=== PATIENT | female | born 1985 ===

== ENCOUNTER 2017-11-08 18:09 | Emergency (ER) | payer SELFPAY ==
[2017-11-08 18:18] VITALS: BP 149/75; PULSE 79; RESP 18; TEMP 97.4; O2SAT 98
--- NOTE | 2017-11-08 19:42 | ED PDOC ---
HPI: Skin/Bite Injury Time Seen by Provider: 11/08/17 18:21 Chief Complaint (Nursing): Bite Past Medical History Vital Signs: Last Vital Signs Temp 97.4 F L 11/08/17 18:13 Pulse 79 11/08/17 18:13 Resp 18 11/08/17 18:13 BP 149/75 11/08/17 18:13 Pulse Ox 98 11/08/17 18:13 - Home Medications Home Medications: Ambulatory Orders Medication Instructions Recorded Nitrofurantoin Macrocrystals 100 mg PO BID #14 cap 06/23/16 [Macrobid] Amoxicillin/Clavulanate [Augmentin 1 tab PO BID #20 tab 11/08/17 875 MG-125 MG] - Allergies Allergies/Adverse Reactions: Allergies Allergy/AdvReac Type Severity Reaction Status Date / Time No Known Allergies Allergy Verified 06/23/16 01:44 - ECG O2 Sat by Pulse Oximetry: 98 Disposition - Clinical Impression Clinical Impression: Dog bite, Puncture wound, Tetanus toxoid vaccination administered at current visit Counseled Patient/Family Regarding: Diagnosis, Need For Followup, Rx Given - Disposition Disposition: Routine/Home Disposition Time: 19:40 Condition: GOOD Prescriptions: Amoxicillin/Clavulanate [Augmentin 875 MG-125 MG] 1 tab PO BID #20 tab Instructions: Animal Bite (ED) Forms: [employer] (Anguillan)
== END 2017-11-08 19:52 | disposition home or self-care (01) ==
LOC: H.ER 18:09
DX: S61.233A Puncture wound without foreign body of left middle finger without damage to nail, initial encounter (principal); W54.0XXA Bitten by dog, initial encounter; Y92.89 Other specified places as the place of occurrence of the external cause

== ENCOUNTER 2018-09-25 17:23 | Emergency (ER) | payer MEDICAID, OTHER ==
[2018-09-25 17:39] VITALS: BP 138/84; PULSE 80; RESP 18; TEMP 98.1; O2SAT 100
[2018-09-25] MEDS ORDERED: Amoxicillin-Clav 875-125 mg Tab PO STA (18:37)
[2018-09-25] MEDS ORDERED: Amoxicillin-Clav 875-125 mg Tab PO ONE (18:41)
--- NOTE | 2018-09-25 18:42 | ED PDOC ---
HPI: CCC, URI, Sore Throat Time Seen by Provider: 09/25/18 17:37 Chief Complaint (Nursing): ENT Problem Chief Complaint (Provider): Facial Swelling, Left Jaw/Ear Pain History Per: Patient History/Exam Limitations: no limitations Have you had recent travel within the past 21 days to any of the following countries: [place], [place], [place] or [place]?: No Onset/Duration Of Symptoms: Hrs (since last night) Current Symptoms Are (Timing): Still Present Sick Contacts (Context): None Additional Complaint(s): Patient is a 33 year old female who presents to the ED with reports of left sided facial swelling that started last night after eating dinner. Patient reports the pain radiates to the jaw and ear. Patient did not take any medications prior to arrival because she is 3 months and unsure of what she can take during . Patient has no other complaints. Denies: fever, rash, new exposures, SOB/cough, throat pain, pain on swallowing, recent dental work, toothache, N/V. PMD: [place] LMP: ~12 weeks ago Past Medical History Reviewed: Historical Data, Nursing Documentation, Vital Signs Vital Signs: Last Vital Signs Temp 98.1 F 09/25/18 17:36 Pulse 80 09/25/18 17:36 Resp 18 09/25/18 17:36 BP 138/84 09/25/18 17:36 Pulse Ox 100 09/25/18 17:36 - Medical History PMH: No Chronic Diseases - Surgical History Surgical History: (x1) - Family History Family History: States: Unknown Family Hx - Home Medications Home Medications: Ambulatory Orders Medication Instructions Recorded Nitrofurantoin Macrocrystals 100 mg PO BID #14 cap 06/23/16 [Macrobid] Amoxicillin/Clavulanate [Augmentin 1 tab PO BID #20 tab 11/08/17 875 MG-125 MG] Acetaminophen [Acetaminophen 8 650 mg PO Q8 PRN #21 tablet.er 09/25/18 Hour] Amoxicillin/Clavulanate [Augmentin 1 tab PO BID #14 tab 09/25/18 875 MG-125 MG] - Allergies Allergies/Adverse Reactions: Allergies Allergy/AdvReac Type Severity Reaction Status Date / Time No Known Allergies Allergy Verified 09/25/18 17:36 Review of Systems ROS Statement: Except As Marked, All Systems Reviewed And Found Negative ENT: Positive for: Ear Pain (referred), Other (Facial swelling) Physical Exam - Reviewed Nursing Documentation Reviewed: Yes Vital Signs Reviewed: Yes - Physical Exam Appears: Positive for: Well, Non-toxic, No Acute Distress Head Exam: Positive for: ATRAUMATIC, NORMOCEPHALIC Skin: Positive for: Normal Color, Warm, Dry Eye Exam: Positive for: EOMI, PERRL. Negative for: Nystagmus, Periorbital tenderness ENT: Positive for: Pharynx Is (clear, uvula midline), TM Is/Are (nonbulging and nonerythematous), Other ((+) edema to parotid gland (+) mild tenderness (-) erythema (-) overlying skin changes. Dentition nontender, (-) gingival erythema or edema). Negative for: Sinus Pain/Drainage, Nasal Congestion, Pharyngeal Erythema, Tonsillar Exudate, Tonsillar Swelling Neck: Positive for: Painless ROM, Supple Cardiovascular/Chest: Positive for: Regular Rate, Rhythm Respiratory: Positive for: Normal Breath Sounds. Negative for: Decreased Breath Sounds, Stridor, Respiratory Distress Gastrointestinal/Abdominal: Positive for: Soft. Negative for: Tenderness, Distended, Guarding Extremity: Positive for: Normal ROM. Negative for: Deformity Neurologic/Psych: Positive for: Alert, Oriented (x3), Gait (steady in ED). Negative for: Aphasia, Facial Droop - ECG O2 Sat by Pulse Oximetry: 100 (RA) Pulse Ox Interpretation: Normal Medical Decision Making Medical Decision Makin Initial Impression: Facial Swelling, Parotitis Plan: -Augmentin PO -Tylenol PO Based on history, exam and diagnostic results, plan will be for outpatient follow up with PMD/ENT. Use of lemon lozenges encouraged. Patient instructed to follow-up with pmd / referral provided / the clinic in 1- 2 days without fail. Advised to take medication as prescribed. Return to the emergency room at any time for any new or worsening symptoms. Patient states she fully agrees with and understands discharge instructions. States that she agrees with the plan and disposition. Verbalized and repeated discharge instructions and plan. I have given the patient opportunity to ask any additional questions. Disposition - Clinical Impression Clinical Impression: Parotitis, Swelling of left side of face - Patient ED Disposition Is Patient to be Admitted: No Counseled Patient/Family Regarding: Studies Performed, Diagnosis, Need For Followup, Rx Given - Disposition Referrals: Titi Guerin MD [Family Provider] - Zurdo Everett MD [Staff Provider] - Disposition: Routine/Home Disposition Time: 18:50 Condition: STABLE Additional Instructions: The emergency medical care you received today was directed at your acute symptoms. If you were prescribed any medication, please fill it and take as dir ected. It may take several days for your symptoms to resolve. Return to the Emergency Department if your symptoms worsen, do not improve, or if you have any other problems. Please contact your doctor in 2 days for re-evaluation and follow up / or call one of the physicians/clinics you have been referred to that are listed on the Patient Visit Information form that is included in your discharge packet. Bring any paperwork you were given at discharge with you along with any medications you are taking to your follow up visit. Our treatment cannot replace ongoing medical care by a primary care provider (PCP) outside of the emergency department. Prescriptions: Acetaminophen [Acetaminophen 8 Hour] 650 mg PO Q8 PRN #21 tablet.er PRN Reason: Pain, Moderate (4-7) Amoxicillin/Clavulanate [Augmentin 875 MG-125 MG] 1 tab PO BID #14 tab Instructions: Parotitis, Salivary Gland Infection (DC) Forms: [facility] [employer] (Hungarian) Print Language: GERMAN - POA Present On Arrival: None
== END 2018-09-25 18:55 | disposition home or self-care (01) ==
LOC: H.ER 17:23
DX: K11.20 Sialoadenitis, unspecified (principal)

== ENCOUNTER 2018-10-05 10:47 | Emergency (ER) | payer MEDICAID ==
[2018-10-05 10:54] VITALS: O2SAT 100
--- NOTE | 2018-10-05 12:32 | ED PDOC ---
HPI: Female Pain Time Seen by Provider: 10/05/18 11:27 Chief Complaint (Nursing): Female Genitourinary History Per: Patient Additional Complaint(s): Pt. states since Friday she's had brown vaginal discharge. Reports noticing the discharge after wiping. States she is currently and under the care of Dr. Gu. Had 1st month visit but no US yet. Today she was advised by Dr. Gu to come to ED for an US. Denies vaginal bleeding, abd pain, pelvic sourav n, back pain, dysuria, hematuria, N/V, hx of ectopic pregnancies. Past Medical History Reviewed: Historical Data, Nursing Documentation, Vital Signs Vital Signs: Last Vital Signs Temp 98.3 F 10/05/18 10:53 Pulse 94 H 10/05/18 10:53 Resp 18 10/05/18 10:53 BP 132/84 10/05/18 10:53 Pulse Ox 100 10/05/18 10:53 - Surgical History Surgical History: (x1) - Family History Family History: States: No Known Family Hx - Home Medications Home Medications: Ambulatory Orders Medication Instructions Recorded Nitrofurantoin Macrocrystals 100 mg PO BID #14 cap 06/23/16 [Macrobid] Amoxicillin/Clavulanate [Augmentin 1 tab PO BID #20 tab 11/08/17 875 MG-125 MG] Acetaminophen [Acetaminophen 8 650 mg PO Q8 PRN #21 tablet.er 09/25/18 Hour] Amoxicillin/Clavulanate [Augmentin 1 tab PO BID #14 tab 09/25/18 875 MG-125 MG] - Allergies Allergies/Adverse Reactions: Allergies Allergy/AdvReac Type Severity Reaction Status Date / Time No Known Allergies Allergy Verified 09/25/18 17:36 Review of Systems ROS Statement: Except As Marked, All Systems Reviewed And Found Negative Genitourinary Female: Positive for: Vaginal Discharge Physical Exam - Physical Exam Appears: Positive for: Well, Non-toxic, No Acute Distress Skin: Positive for: Normal Color, Warm. Negative for: Rash Eye Exam: Positive for: Normal appearance Gastrointestinal/Abdominal: Positive for: Normal Exam, Soft. Negative for: Tenderness Back: Positive for: Normal Inspection. Negative for: L CVA Tenderness, R CVA Tenderness Neurologic/Psych: Positive for: Alert, Oriented (x3) - Laboratory Results Result Diagrams: 12/03/18 12:25 10/05/18 12:25 - ECG O2 Sat by Pulse Oximetry: 100 - Progress ED Course And Treament: Labs ordered. Case d/w Dr. Gu who requests US and BHCG level to be done. Results d/w Dr. Gu who states pt. is to f/u in his office tomorrow but prefers to give US results. Also states no Abx to be given at this time and he will f/u on cultures himself. Upon being discharge pt. requested that she be given US results. Pt. given US results and still advised to f/u with Dr. Gu tomorrow. Agrees with plan and care. US results faxed to Dr. Gu at his request. Disposition - Clinical Impression Clinical Impression: Miscarriage - Patient ED Disposition Is Patient to be Admitted: No - Disposition Referrals: Giuliano Gu MD [Staff Provider] - Disposition: Routine/Home Disposition Time: 14:32 Condition: STABLE Additional Instructions: FOLLOW UP WITH DR. GU TOMORROW WITHOUT FAIL RETURN TO ED IMMEDIATELY FOR ANY CONCERNS OR QUESTIONS DELFIN LARSEN, thank you for letting us take care of you today. Your provider was Medardo Garcia MD and you were treated for 12 WEEKS,DISCHARGING. The emergency medical care you received today was directed at your acute symptoms. If you were prescribed any medication, please fill it and take as directed. It may take several days for your symptoms to resolve. Return to the Emergency Depa rtment if your symptoms worsen, do not improve, or if you have any other problems. Please contact your doctor or call one of the physicians/clinics you have been referred to that are listed on the Patient Visit Information form that is included in your discharge packet. Bring any paperwork you were given at discharge with you along with any medications you are taking to your follow up visit. Our treatment cannot replace ongoing medical care by a primary care provider outside of the emergency department. Thank you for allowing the [facility] team to be part of your care today. If you had an X-Ray or CT scan: A Radiologist will review the ED reading if any change in treatment is needed we will contact you. If you had a blood, urine, or wound culture: It will take several days for the results, if any change in treatment is needed we will contact you. If you had an STI test: It will take 48 hours for the results. Please call after 1 week if you have not heard back. Instructions: Miscarriage (DC), Dealing With Miscarriage Forms: [facility] (Romanian) Print Language: LIBERIAN
[2018-10-05 12:46] LABS: BASO # 0.1 K/uL (0.0-0.2); BASO % 0.5 % (0.0-2.0); EOS # 0.1 K/uL (0.0-0.7); EOS % 0.5 % (0.0-4.0); HEMOGLOBIN 12.8 g/dL (12.0-16.0); LYMPH # 1.9 K/uL (1.0-4.3); LYMPH % 16.4 % (20.0-40.0); MEAN CELL VOLUME 92.2 fl (81.0-99.0); MEAN CORPUSCULAR HEMOGLOBIN 30.1 pg (27.0-31.0); MEAN CORPUSCULAR HGB CONC 32.6 g/dL (33.0-37.0); MEAN PLATELET VOLUME 6.6 fl (7.2-11.7); MONO # 0.6 K/uL (0.0-0.8); NEUT # 8.9 K/uL (1.8-7.0); NEUT % 77.6 % (50.0-75.0); NRBC % 0.2 % (0.0-0.0); RBC 4.27 Mil/uL (3.80-5.20); RED CELL DISTRIBUTION WIDTH 13.5 % (11.5-14.5); WHITE BLOOD COUNT 11.5 K/uL (4.8-10.8)
[2018-10-05 12:51] LABS: SQUAMOUS EPITHIAL 11 /hpf (0-5); URINE BACTERIA RARE (<OCC); URINE BILIRUBIN NEGATIVE (NEGATIVE); URINE BLOOD MODERATE (NEGATIVE); URINE CLARITY CLOUDY (Clear); URINE COLOR YELLOW (YELLOW); URINE GLUCOSE (UA) NEG (Normal); URINE LEUKOCYTE ESTERASE MOD Leu/uL (Negative); URINE PROTEIN 30 mg/dL (NEGATIVE); URINE UROBILINOGEN 0.2-1.0 mg/dL (0.2-1.0)
[2018-10-05 12:51] LABS: ALB/GLOB RATIO 1.2 (1.0-2.1); ALBUMIN 4.4 g/dL (3.5-5.0); ALT/SGPT 25 U/L (9-52); AST/SGOT 29 U/L (14-36); BLOOD UREA NITROGEN 12 mg/dl (7-17); CALCIUM 9.5 mg/dL (8.4-10.2); GFR NON-AFRICAN AMERICAN > 60
--- NOTE | 2018-10-05 13:50 | US ---
Date of service: 10/05/2018 PROCEDURE: ultrasound HISTORY: brown vaginal discharge Beta HCG results: Eleven thousand nine hundred ten. Units. COMPARISON: None TECHNIQUE: Standard protocol for this study/examination. FINDINGS: LMP: 07/18/2018 Prior examinations from the current : None. TECHNIQUE: Real-time 2D imaging, duplex and color Doppler. FINDINGS: Cardiac activity: Absent Measurements: [place] rump length: 1.54 cm Gestational age based on CRL 8 weeks Gestational age 9 weeks 1 day based on gestational sac measurement 3.91 cm Gestational age derived from LMP: 11 weeks 2 days STEFANY based on LMP: 04/24/2019 STEFANY based on biometry: 05/13/2019 Yolk sac not identified Cervix: Fluid in the endocervical canal. Closed cervix measuring 4.02 cm Subchorionic hemorrhage: None UTERUS: 4.3 x 6.8 x 9.3 cm. Anterior fibroid measures 1.6 x 1.5 cm ADNEXA: Right: 1.7 x 2.2 x 2.9 cm. Solid/complex mass 1.7 x 1.8 cm. Normal Doppler arterial waveform documented. Left: Not visible Fluid in the cul-de-sac: None IMPRESSION: Absence of cardiac activity suggest intrauterine demise. Complex primarily solid mass right adnexa.
[2018-10-05 14:46] VITALS: BP 130/74; PULSE 88; RESP 16; TEMP 98.4
== END 2018-10-05 14:46 | disposition home or self-care (01) ==
LOC: H.ER 10:47
DX: O03.9 Complete or unspecified spontaneous abortion without complication (principal)

== ENCOUNTER 2019-03-14 18:15 | Inpatient (IN) | payer MEDICAID ==
[2019-03-14 18:20] VITALS: BMI 29.0
[2019-03-14] MEDS ORDERED: Sodium Chloride 0.9% 1,000 ML IV STA (18:35)
[2019-03-14] MEDS ORDERED: Iohexol 240 (50 ml) PO ONE (18:37)
--- NOTE | 2019-03-14 18:46 | ED PDOC ---
HPI: Abdomen Time Seen by Provider: 03/14/19 18:27 Chief Complaint (Nursing): Back Pain Chief Complaint (Provider): abdominal pain History Per: Patient History/Exam Limitations: no limitations Onset/Duration Of Symptoms: Days Outside of [place] travel?: No Current Symptoms Are (Timing): Still Present Pain Scale Rating Of: 6 Location Of Pain/Discomfort: Diffuse Quality Of Discomfort: "Pain" Associated Symptoms: denies: Fever, Chills, Nausea, Vomiting, Diarrhea, Loss Of Appetite, Back Pain, Chest Pain, Constipation, Urinary Symptoms Exacerbating Factors: None Alleviating Factors: None Additional History Per: Patient Additional Complaint(s): 33 year old female with no significant medical history presents to the Emergency room c/o back pain started yesterday and diffuse abdominal pain started this morning. Patient states back pain started yesterday while "shopping" non- radiating, denies aggravating symptoms. Today she woke up with diffuse abdominal pain. Denies nausea, vomiting, diarrhea or fever. Past Medical History Reviewed: Historical Data, Nursing Documentation, Vital Signs Vital Signs: Last Vital Signs Temp 97.9 F 03/14/19 18:18 Pulse 80 03/14/19 18:18 Resp 18 03/14/19 18:18 BP 128/82 03/14/19 18:18 Pulse Ox 99 03/14/19 18:18 Primary Care Provider: FAMILY PROVIDER,NO - Medical History PMH: No Chronic Diseases - Surgical History Surgical History: No Surg Hx, (x1) - Family History Family History: States: Unknown Family Hx - Social History Alcohol: None Drugs: Denies - Home Medications Home Medications: Ambulatory Orders Medication Instructions Recorded Nitrofurantoin Macrocrystals 100 mg PO BID #14 cap 06/23/16 [Macrobid] Amoxicillin/Clavulanate [Augmentin 1 tab PO BID #20 tab 11/08/17 875 MG-125 MG] Acetaminophen [Acetaminophen 8 650 mg PO Q8 PRN #21 tablet.er 09/25/18 Hour] Amoxicillin/Clavulanate [Augmentin 1 tab PO BID #14 tab 09/25/18 875 MG-125 MG] - Allergies Allergies/Adverse Reactions: Allergies Allergy/AdvReac Type Severity Reaction Status Date / Time No Known Allergies Allergy Verified 03/14/19 18:31 Review of Systems ROS Statement: Except As Marked, All Systems Reviewed And Found Negative Constitutional: Negative for: Fever, Chills, Sweats, Weakness, Malaise, Weight loss Respiratory: Negative for: Cough, Shortness of Breath, SOB with Exertion, Wheezing Gastrointestinal: Positive for: Abdominal Pain. Negative for: Nausea, Vomiting, Diarrhea, Constipation Genitourinary Female: Negative for: Dysuria Skin: Negative for: Rash Physical Exam - Reviewed Nursing Documentation Reviewed: Yes Vital Signs Reviewed: Yes - Physical Exam Appears: Positive for: Well, Non-toxic, No Acute Distress Head Exam: Positive for: ATRAUMATIC, NORMAL INSPECTION, NORMOCEPHALIC Skin: Positive for: Normal Color, Warm, DRY Eye Exam: Positive for: Normal appearance, PERRL ENT: Positive for: Normal ENT Inspection Neck: Positive for: Normal, Painless ROM, Supple Cardiovascular/Chest: Positive for: Regular Rate, Rhythm Respiratory: Positive for: CNT, Normal Breath Sounds Pulses-Radial (L): 2+ Pulses-Radial (R): 2+ Gastrointestinal/Abdominal: Positive for: Normal Exam, Bowel Sounds, Soft, Tenderness (diffuse tenderness throughout ). Negative for: Distended Back: Positive for: Normal Inspection. Negative for: L CVA Tenderness, R CVA Tenderness, Vertebral Tenderness Extremity: Positive for: Normal ROM Neurological/Psych: Positive for: Awake, Alert, Normal Tone, Oriented - Laboratory Results Result Diagrams: 03/14/19 19:18 03/14/19 19:18 Urine POC: Negative - ECG O2 Sat by Pulse Oximetry: 99 Medical Decision Making Medical Decision Making: --cbc --cmp --lipase --ua --upreg --toradol --0.9NS 19:39 UA negative, pending rest of labs and ct scan 20:00 Patient endorsed to Lauro Calzada PA-c. Pending labs and CT scan abd/pelvis, re- eval. Disposition - Clinical Impression Clinical Impression: Abdominal pain - Patient ED Disposition Is Patient to be Admitted: Transfer of Care Counseled Patient/Family Regarding: Diagnosis - Disposition Disposition: Transfer of Care Disposition Time: 20:00 Condition: GOOD Forms: [email or web address] (Hong Konger) Patient Signed Over To: Lauro Calzada Handoff Comments: follow-up on blood work and ct scan abd - POA Present On Arrival: None
[2019-03-14 19:19] LABS: SQUAMOUS EPITHIAL 1 /hpf (0-5); URINE BILIRUBIN NEGATIVE (NEGATIVE); URINE BLOOD SMALL (NEGATIVE); URINE CLARITY SLIGHTY-CLOUDY (Clear); URINE COLOR YELLOW (YELLOW); URINE GLUCOSE (UA) NEG (NEGATIVE); URINE LEUKOCYTE ESTERASE NEG Leu/uL (Negative); URINE PROTEIN NEGATIVE (NEGATIVE); URINE UROBILINOGEN 0.2-1.0 mg/dL (0.2-1.0)
[2019-03-14] MEDS ORDERED: Iohexol 240 (50 ml) ONE (19:23)
[2019-03-14 20:10] LABS: BASO % 0.4 % (0.0-2.0); EOS # 0.1 K/uL (0.0-0.7); EOS % 1.6 % (0.0-4.0); HEMOGLOBIN 12.9 g/dL (12.0-16.0); LYMPH # 2.3 K/uL (1.0-4.3); LYMPH % 25.8 % (20.0-40.0); MEAN CELL VOLUME 87.9 fl (81.0-99.0); MEAN CORPUSCULAR HEMOGLOBIN 29.1 pg (27.0-31.0); MEAN CORPUSCULAR HGB CONC 33.1 g/dL (33.0-37.0); MEAN PLATELET VOLUME 6.8 fl (7.2-11.7); MONO # 0.7 K/uL (0.0-0.8); MONO % 8.1 % (0.0-10.0); NEUT # 5.8 K/uL (1.8-7.0); NEUT % 64.1 % (50.0-75.0); RBC 4.42 Mil/uL (3.80-5.20); RED CELL DISTRIBUTION WIDTH 14.1 % (11.5-14.5)
--- NOTE | 2019-03-14 20:12 | ED PDOC ---
- Laboratory Results Result Diagrams: 03/14/19 19:18 03/14/19 19:18 Lab Results: Urine Color Yellow (YELLOW) 03/14/19 18:48 Urine Clarity Slighty-cloudy (Clear) 03/14/19 18:48 Urine pH 5.0 (5.0-8.0) 03/14/19 18:48 Ur Specific [place] 1.025 (1.003-1.030) 03/14/19 18:48 Urine Protein Negative mg/dL (NEGATIVE) 03/14/19 18:48 Urine Glucose (UA) Neg mg/dL (NEGATIVE) 03/14/19 18:48 Urine Ketones Negative mg/dL (NEGATIVE) 03/14/19 18:48 Urine Blood Small (NEGATIVE) 03/14/19 18:48 Urine Nitrate Negative (NEGATIVE) 03/14/19 18:48 Urine Bilirubin Negative (NEGATIVE) 03/14/19 18:48 Urine Urobilinogen 0.2-1.0 mg/dL (0.2-1.0) 03/14/19 18:48 Ur Leukocyte Esterase Neg Jeb/uL (Negative) 03/14/19 18:48 Urine RBC (Auto) 3 /hpf (0-3) 03/14/19 18:48 Ur Squamous Epith Cells 1 /hpf (0-5) 03/14/19 18:48 Urine POC: Negative - ECG O2 Sat by Pulse Oximetry: 99 - Progress ED Course And Treament: CT ABD/PELVIS: FINDINGS CONSISTENT WITH ACUTE APPENDICITIS D/W DR. COLLAZO PMD. REFERS TO HOSPITALIST D/W SURG RESIDENT. D/W DR. HURT HOSPITALIST JRYair 3.375GM IV X 1 DOSE Disposition - Clinical Impression Clinical Impression: Abdominal pain - POA Present On Arrival: None - Disposition Disposition: Admitted as In-Patient Disposition Time: 22:27 Condition: GOOD
[2019-03-14 20:19] LABS: ALB/GLOB RATIO 1.4 (1.0-2.1); ALBUMIN 4.4 g/dL (3.5-5.0); ALT/SGPT 27 U/L (9-52); AST/SGOT 26 U/L (14-36); BLOOD UREA NITROGEN 12 mg/dl (7-17); CALCIUM 8.8 mg/dL (8.4-10.2); GFR NON-AFRICAN AMERICAN > 60; LIPASE 48 U/L (23-300)
[2019-03-14] MEDS ORDERED: Iohexol 300 100 ML IJ ONE (21:12)
[2019-03-14] MEDS ORDERED: Piperacillin/Tazobact 3.375 GM in Sodium Chloride 0.9% 100 ML IVPB STA (22:16)
[2019-03-14] MEDS ORDERED: Piperacillin/Tazobact 3.375 gm Inj IVPB ONE (22:45)
--- NOTE | 2019-03-14 22:46 | CP.PCM.HP ---
<Maine Locke - Last Filed: 03/14/19 23:30> History of Present Illness - History of Present Illness History of Present Illness: 33 yo female with no pertinent medical history presented to the ED because of low bilateral back pain that radiates to the upper and lower abdomen. Pain is 9/ 10, constant, no alleviating or aggravating factors. Reports she did not use any medication for the pain at home. Denies pain being associated with food intake. Last meal was 1pm. Denies Nausea, vomiting, fevers, chills, diarrhea, sick contacts, chest pain, shortness of breath, loss of appetite, dysuria, frequency and urgency. LMP: 02/2019 (patient does not remember the date). ROS: negative except for stated above in HPI Family history: Maternal grandfather from a stroke in his 60's. Mother with HTN Surgical history: 1 C/S Medical history: Denies Allergies: Denies Social: denies alcohol, smoking history and illicit drug use. Present on Admission - Present on Admission Any Indicators Present on Admission: No Review of Systems - Cardiovascular Cardiovascular: As Per HPI - Respiratory Respiratory: As Per HPI - Gastrointestinal Gastrointestinal: As Per HPI - Genitourinary Genitourinary: As Per HPI Past Patient History - Past Medical History & Family History Past Medical History?: No - Past Social History Alcohol: None Drugs: Denies - PSYCHIATRIC Hx Substance Use: No - SURGICAL HISTORY Hx Surgeries: Yes Hx Section: Yes - ANESTHESIA Hx Anesthesia: Yes Hx Anesthesia Reactions: No Meds Allergies/Adverse Reactions: Allergies Allergy/AdvReac Type Severity Reaction Status Date / Time No Known Allergies Allergy Verified 03/14/19 18:31 Physical Exam - Constitutional Appears: Non-toxic, No Acute Distress - Head Exam Head Exam: NORMAL INSPECTION - Eye Exam Eye Exam: Normal appearance Pupil Exam: NORMAL ACCOMODATION - ENT Exam ENT Exam: Mucous Membranes Moist, Normal Exam - Respiratory Exam Respiratory Exam: Clear to Auscultation Bilateral, NORMAL BREATHING PATTERN. absent: Accessory Muscle Use, Chest Wall Tenderness, Decreased Breath Sounds, Prolonged Expiratory Phase, Rales, Rhonchi, Wheezes, Respiratory Distress, Stridor - Cardiovascular Exam Cardiovascular Exam: REGULAR RHYTHM, +S1, +S2 - GI/Abdominal Exam GI & Abdominal Exam: Normal Bowel Sounds, Rebound (Rovsing's sign positive. RLQ Rebound and LLQ rebound), Soft, Tenderness (RLQ Tenderness). absent: Distended, Firm, Guarding - Extremities Exam Extremities exam: Positive for: normal capillary refill (<2 sec cap refill), normal inspection, pedal pulses present (+2 dorsalis pedis and tibialis pulses present bilaterally. ). Negative for: calf tenderness, pedal edema, tenderness - Back Exam Back exam: NORMAL INSPECTION. absent: CVA tenderness (L), CVA tenderness (R), tenderness, vertebral tenderness - Neurological Exam Neurological exam: Alert, Oriented x3 - Psychiatric Exam Psychiatric exam: Normal Affect, Normal Mood - Skin Skin Exam: Dry, Intact, Normal Color, Warm Results - Vital Signs Recent Vital Signs: Last Vital Signs Temp 98.1 F 03/14/19 20:00 Pulse 72 03/14/19 20:00 Resp 18 03/14/19 20:00 BP 116/76 03/14/19 20:00 Pulse Ox 99 03/14/19 22:27 - Labs Result Diagrams: 03/14/19 19:18 03/14/19 19:18 Labs: Laboratory Results - last 24 hr 03/14/19 03/14/19 03/14/19 18:48 19:18 19:18 WBC 9.0 RBC 4.42 Hgb 12.9 Hct 38.8 MCV 87.9 D MCH 29.1 MCHC 33.1 RDW 14.1 Plt Count 332 MPV 6.8 L Neut % (Auto) 64.1 Lymph % (Auto) 25.8 [place] % (Auto) 8.1 Eos % (Auto) 1.6 Baso % (Auto) 0.4 Neut # (Auto) 5.8 Lymph # (Auto) 2.3 [place] # (Auto) 0.7 Eos # (Auto) 0.1 Baso # (Auto) 0.0 Sodium 137 Potassium 3.9 Chloride 103 Carbon Dioxide 25 Anion Gap 13 BUN 12 Creatinine 0.5 L Est GFR ( Amer) > 60 Est GFR (Non-Af Amer) > 60 Random Glucose 85 Calcium 8.8 Total Bilirubin 0.3 AST 26 ALT 27 Alkaline Phosphatase 68 Total Protein 7.5 Albumin 4.4 Globulin 3.2 Albumin/Globulin Ratio 1.4 Lipase 48 Urine Color Yellow Urine Clarity Slighty-cloudy Urine pH 5.0 Ur Specific [place] 1.025 Urine Protein Negative Urine Glucose (UA) Neg Urine Ketones Negative Urine Blood Small Urine Nitrate Negative Urine Bilirubin Negative Urine Urobilinogen 0.2-1.0 Ur Leukocyte Esterase Neg Urine RBC (Auto) 3 Ur Squamous Epith Cells 1 Assessment & Plan (1) Acute appendicitis Status: Acute - Assessment and Plan (Free Text) Assessment: 33 yo female with no pertinent medical history presented to ED because of low back pain and upper abdominal pain, admitted for Acute appendicitis. Plan: 1. Acute Appendicitis - Admit to Med/Surg - Hemodynamically stable, afebrile, no leukocytosis - Upreg negative - Surgery consult appreciated- OR planned for tomorrow - CT scan: Acute appendicitis - Of note, patient had TVUS performed 10/2018 which found complex primarily solid mass on right adnexa- surgery made aware. - NPO - IVF @ maintenance - Zofran for nausea - Zosyn Q6H - Repeat Labs in the morning - Pain management- motrin and morphine - Tylenol for fevers 2. DVT prophylaxis - Early ambulation and SCD's 3. Full code <Chung Shah - Last Filed: 03/15/19 00:04> Results - Vital Signs Recent Vital Signs: Last Vital Signs Temp 98.1 F 03/14/19 20:00 Pulse 72 03/14/19 20:00 Resp 18 03/14/19 20:00 BP 116/76 03/14/19 20:00 Pulse Ox 99 03/14/19 22:27 - Labs Result Diagrams: 03/14/19 19:18 03/14/19 19:18 Labs: Laboratory Results - last 24 hr 03/14/19 03/14/19 03/14/19 18:48 19:18 19:18 WBC 9.0 RBC 4.42 Hgb 12.9 Hct 38.8 MCV 87.9 D MCH 29.1 MCHC 33.1 RDW 14.1 Plt Count 332 MPV 6.8 L Neut % (Auto) 64.1 Lymph % (Auto) 25.8 [place] % (Auto) 8.1 Eos % (Auto) 1.6 Baso % (Auto) 0.4 Neut # (Auto) 5.8 Lymph # (Auto) 2.3 [place] # (Auto) 0.7 Eos # (Auto) 0.1 Baso # (Auto) 0.0 Sodium 137 Potassium 3.9 Chloride 103 Carbon Dioxide 25 Anion Gap 13 BUN 12 Creatinine 0.5 L Est GFR ( Amer) > 60 Est GFR (Non-Af Amer) > 60 Random Glucose 85 Calcium 8.8 Total Bilirubin 0.3 AST 26 ALT 27 Alkaline Phosphatase 68 Total Protein 7.5 Albumin 4.4 Globulin 3.2 Albumin/Globulin Ratio 1.4 Lipase 48 Urine Color Yellow Urine Clarity Slighty-cloudy Urine pH 5.0 Ur Specific [place] 1.025 Urine Protein Negative Urine Glucose (UA) Neg Urine Ketones Negative Urine Blood Small Urine Nitrate Negative Urine Bilirubin Negative Urine Urobilinogen 0.2-1.0 Ur Leukocyte Esterase Neg Urine RBC (Auto) 3 Ur Squamous Epith Cells 1 Assessment & Plan - Assessment and Plan (Free Text) Plan: History as documented by resident was reviewed with patient and resident. I performed the lin elements of exam and agree with the above findings. Diagn ostics were reviewed and medical decision making and plan of care performed by me. 33 yo CF with no PMH p/w back and abdominal pain x1 day. CT showing acute appendicitis. Lab work unremarkable. On exam has tenderness most prominent over RLQ without rigidity or rebound. IVF, Zosyn. Pain management. Surgery consult. As far as risk assessment she is of average risk for the intermedate risk procedure (appendectomy). No need for any further pre-op work up. Can proceed with surgery if deemed indicated by surgery.
--- NOTE | 2019-03-14 23:19 | CP.PCM.CON ---
History of Present Illness - History of Present Illness History of Present Illness: Surgery: Dr. Zavaleta Reason for consult: appendicitis HPI: Patient is a 33F who presents complaining of low back pain for the past 2 days she states the pain migrated around to the front of her abdomen and localized to the RLQ. She reports the pain progressively got worse over the past 48 hrs which prompted visit. She denies n/v/f/c. She reports normal bowel function. She denies similar pain in the past. She denies vaginal discharge or urinary symptoms. She reports last menstrual cycle was last month and shorter than normal. PMH: PSH: C section Social: denies ETOH, tobacco, or drug use Fam: noncontributory Review of Systems - Review of Systems All systems: reviewed and no additional remarkable complaints except Review of Systems: unless stated in HPI - Constitutional Constitutional: absent: Anorexia, Chills, Fever - EENT Eyes: absent: Blurred Vision, Change in Vision Ears: absent: Disequilibrium, Dizziness Nose/Mouth/Throat: absent: Nasal Trauma, Change in Voice - Cardiovascular Cardiovascular: absent: Chest Pain, Dyspnea - Respiratory Respiratory: absent: Cough, Wheezing - Gastrointestinal Gastrointestinal: Abdominal Pain. absent: Bloating, Constipation, Cramping, Diarrhea, Vomiting - Genitourinary Genitourinary: absent: Change in Urinary Stream, Hematuria, Pyuria - Reproductive: Female Reproductive:Female: absent: Vaginal Odor, Vaginal Pruritis - Menstruation Menstruation: Light Menses. absent: Heavy Menses - Integumentary Integumentary: absent: Acne, Lesions - Neurological Neurological: absent: Dizziness, Numbness - Psychiatric Psychiatric: absent: Anxiety, Depression - Endocrine Endocrine: absent: Polydipsia, Polyphagia - Hematologic/Lymphatic Hematologic: absent: Easy Bleeding, Easy Bruising Past Patient History - Past Medical History & Family History Past Medical History?: No - Past Social History Alcohol: None Drugs: Denies - PSYCHIATRIC Hx Substance Use: No - SURGICAL HISTORY Hx Surgeries: Yes Hx Section: Yes - ANESTHESIA Hx Anesthesia: Yes Hx Anesthesia Reactions: No Meds Allergies/Adverse Reactions: Allergies Allergy/AdvReac Type Severity Reaction Status Date / Time No Known Allergies Allergy Verified 03/14/19 18:31 - Medications Medications: Current Medications Piperacillin Sod/Tazobactam (Sod 3.375 gm/ Sodium Chloride) 100 mls @ 100 mls/hr IVPB STAT STA; Protocol Stop: 03/14/19 23:15 Last Admin: 03/14/19 22:57 Dose: 100 mls/hr Lactated Ringer's (Lactated Ringer's) 1,000 mls @ 125 mls/hr IV .Q8H YUN Ibuprofen (Motrin Tab) 400 mg PO Q6 PRN PRN Reason: Pain, Mild (1-3) Morphine Sulfate (Morphine) 2 mg IVP Q6 PRN PRN Reason: Pain, moderate (4-7) Morphine Sulfate (Morphine) 4 mg IVP Q6 PRN PRN Reason: Pain, severe (8-10) Ondansetron HCl (Zofran Inj) 4 mg IVP Q6 PRN PRN Reason: Nausea/Vomiting Physical Exam - Constitutional Appears: Non-toxic, No Acute Distress - Head Exam Head Exam: ATRAUMATIC, NORMOCEPHALIC - Eye Exam Eye Exam: EOMI, Normal appearance - ENT Exam ENT Exam: Mucous Membranes Moist - Respiratory Exam Respiratory Exam: NORMAL BREATHING PATTERN. absent: Respiratory Distress - Cardiovascular Exam Cardiovascular Exam: REGULAR RHYTHM. absent: Tachycardia - GI/Abdominal Exam GI & Abdominal Exam: Soft, Tenderness (RLQ). absent: Distended, Guarding, Rebound, Rigid - Extremities Exam Extremities exam: Positive for: normal inspection. Negative for: calf tenderness - Neurological Exam Neurological exam: Alert, Oriented x3 - Psychiatric Exam Psychiatric exam: Normal Affect, Normal Mood - Skin Skin Exam: Normal Color, Warm Results - Vital Signs Recent Vital Signs: Last Vital Signs Temp 98.1 F 03/14/19 20:00 Pulse 72 03/14/19 20:00 Resp 18 03/14/19 20:00 BP 116/76 03/14/19 20:00 Pulse Ox 99 03/14/19 22:27 - Labs Result Diagrams: 03/14/19 19:18 03/14/19 19:18 Labs: Laboratory Results - last 24 hr 03/14/19 03/14/19 03/14/19 18:48 19:18 19:18 WBC 9.0 RBC 4.42 Hgb 12.9 Hct 38.8 MCV 87.9 D MCH 29.1 MCHC 33.1 RDW 14.1 Plt Count 332 MPV 6.8 L Neut % (Auto) 64.1 Lymph % (Auto) 25.8 [place] % (Auto) 8.1 Eos % (Auto) 1.6 Baso % (Auto) 0.4 Neut # (Auto) 5.8 Lymph # (Auto) 2.3 [place] # (Auto) 0.7 Eos # (Auto) 0.1 Baso # (Auto) 0.0 Sodium 137 Potassium 3.9 Chloride 103 Carbon Dioxide 25 Anion Gap 13 BUN 12 Creatinine 0.5 L Est GFR ( Amer) > 60 Est GFR (Non-Af Amer) > 60 Random Glucose 85 Calcium 8.8 Total Bilirubin 0.3 AST 26 ALT 27 Alkaline Phosphatase 68 Total Protein 7.5 Albumin 4.4 Globulin 3.2 Albumin/Globulin Ratio 1.4 Lipase 48 Urine Color Yellow Urine Clarity Slighty-cloudy Urine pH 5.0 Ur Specific [place] 1.025 Urine Protein Negative Urine Glucose (UA) Neg Urine Ketones Negative Urine Blood Small Urine Nitrate Negative Urine Bilirubin Negative Urine Urobilinogen 0.2-1.0 Ur Leukocyte Esterase Neg Urine RBC (Auto) 3 Ur Squamous Epith Cells 1 - Imaging and Cardiology CT scan - chest Status: Image reviewed by me, Report reviewed by me Additional comment: CT with mild inflammatory changes around a dilated appendix Assessment & Plan - Assessment and Plan (Free Text) Assessment: 33 y/o female w/ appedicitis Plan: -NPO pmn -pain control -IV abx - Zosyn -zofran -OOB -am labs -urine preg test is neg -for OR tomorrow for lap appy -further recs per Dr. Waqar Ayers PGY4
[2019-03-15] MEDS: Lactated Ringer's 1,000 ML IV SCH ×2 (00:43→16:14)
[2019-03-15] MEDS: Piperacillin/Tazobact 3.375 GM in Sodium Chloride 0.9% 100 ML IVPB SCH ×3 (03:32→16:15)
[2019-03-15 06:31] LABS: HEMOGLOBIN 12.1 g/dL (12.0-16.0); MEAN CELL VOLUME 87.4 fl (81.0-99.0); MEAN CORPUSCULAR HEMOGLOBIN 29.2 pg (27.0-31.0); MEAN CORPUSCULAR HGB CONC 33.4 g/dL (33.0-37.0); RBC 4.14 Mil/uL (3.80-5.20); RED CELL DISTRIBUTION WIDTH 13.9 % (11.5-14.5); WHITE BLOOD COUNT 7.5 K/uL (4.8-10.8)
[2019-03-15 06:39] LABS: INR 1.1; PROTHROMBIN TIME 12.2 Seconds (9.8-13.1)
[2019-03-15 06:42] LABS: PARTIAL THROMBOPLASTIN TIME 33.4 Seconds (25.6-37.1)
[2019-03-15 06:49] LABS: BLOOD UREA NITROGEN 8 mg/dl (7-17); CALCIUM 8.4 mg/dL (8.4-10.2); GFR NON-AFRICAN AMERICAN > 60
--- NOTE | 2019-03-15 09:37 | CT ---
Date of service: 03/14/2019 PROCEDURE: CT Abdomen and Pelvis with contrast HISTORY: abd pain COMPARISON: Pelvis ultrasound 10/06/2009. TECHNIQUE: Following oral and intravenous contrast administration, a CT examination of the abdomen and pelvis was performed from the domes of the diaphragms to the symphysis pubis with reformatted datasets provided not only axial but also sagittal and coronal series. Contrast dose: Omnipaque 300, 100 cc Radiation dose: Total exam DLP = 896.77 mGy-cm. This CT exam was performed using one or more of the following dose reduction techniques: Automated exposure control, adjustment of the mA and/or kV according to patient size, and/or use of iterative reconstruction technique. FINDINGS: LOWER THORAX: Unremarkable. LIVER: Unremarkable. No gross lesion or ductal dilatation. GALLBLADDER AND BILE DUCTS: Unremarkable. PANCREAS: Unremarkable. No gross lesion or ductal dilatation. SPLEEN: Unremarkable. ADRENALS: Unremarkable. No mass. KIDNEYS AND URETERS: Unremarkable. No hydronephrosis. No solid mass. VASCULATURE: Unremarkable. No aortic aneurysm. No aortic atherosclerotic calcification or mural plaque present. BOWEL: Unremarkable. No obstruction. No gross mural thickening. APPENDIX: The appendix is dilated and thick walled with no oral contrast in the lumen though oral contrast is clearly identified within the distal small bowel and the cecum/ascending colon in significant volume. Appendix measures 10.7 mm transverse dimension and is inflamed, compatible with active appendicitis without CT sign of rupture. PERITONEUM: Tiny umbilical hernia containing only fat. No free fluid. No free air. Periappendiceal reaction without abscess LYMPH NODES: Unremarkable. No enlarged lymph nodes. BLADDER: Unremarkable. REPRODUCTIVE: Unremarkable. BONES: No acute fracture. OTHER FINDINGS: None. IMPRESSION: Findings most compatible with unruptured appendicitis. Surgical consultation recommended. Concordant preliminary report from [facility], 03/14/2019, 9:47 p.m..
[2019-03-15] MEDS ORDERED: Midazolam 2 MG/2 ML VIAL ONE (11:11)
[2019-03-15] MEDS ORDERED: ePHEDrine 50 mg/ml Inj ONE (11:11)
[2019-03-15] MEDS ORDERED: Rocuronium 10 mg/ml (5 ml) ONE (11:11)
[2019-03-15] MEDS ORDERED: Propofol 10 mg/ml Inj (20 ML) ONE (11:11)
[2019-03-15] MEDS ORDERED: Lidocaine 4% (Laryng-O-Jet) Kit MM ONE (11:12)
[2019-03-15] MEDS ORDERED: Succinylcholine Chloride 20 mg/ml Syr (5 ml) IV ONE (11:12)
[2019-03-15] MEDS ORDERED: Bupivacaine 0.5% Inj(30mL) ONE (11:24)
[2019-03-15] MEDS ORDERED: Lactated Ringer's 1,000 ML IV ONE (11:50)
[2019-03-15] MEDS ORDERED: Bupivacaine HCl 0.5% PF (30 ml) Inj IJ ONE ×3 (12:09)
[2019-03-15] MEDS ORDERED: Dexamethasone 4 mg/1 ml ONE (12:30)
[2019-03-15] MEDS ORDERED: Neostigmine 1:1000 (1 mg/ml) Inj ONE (12:34)
[2019-03-15] MEDS ORDERED: Desflurane Inhalation Anesthetic Liq (240 ml) ONE (12:42)
--- NOTE | 2019-03-15 12:49 | CP.PCM.PN ---
Subjective - Date & Time of Evaluation Date of Evaluation: 03/15/19 Time of Evaluation: 10:45 - Subjective Subjective: Patient seen and examined this AM, NAD. Patient c/o diffuse abdominal pain at this time, denies N/V/D. Afebrile. Patient waiting pending call to OR for appy. Objective - Vital Signs/Intake and Output Vital Signs (last 24 hours): Temp Pulse Resp BP Pulse Ox 98.1 F 80 20 109/68 98 03/15/19 11:28 03/15/19 11:28 03/15/19 11:28 03/15/19 11:28 03/15/19 11:28 - Medications Medications: Current Medications Acetaminophen (Tylenol 325mg Tab) 650 mg PO Q6 PRN PRN Reason: Fever >100.4 F Lactated Ringer's (Lactated Ringer's) 1,000 mls @ 125 mls/hr IV .Q8H YUN Last Admin: 03/15/19 00:43 Dose: 125 mls/hr Piperacillin Sod/Tazobactam (Sod 3.375 gm/ Sodium Chloride) 100 mls @ 100 mls/hr IVPB Q6 YUN; Protocol Last Admin: 03/15/19 09:00 Dose: 100 mls/hr Ibuprofen (Motrin Tab) 400 mg PO Q6 PRN PRN Reason: Pain, Mild (1-3) Morphine Sulfate (Morphine) 2 mg IVP Q6 PRN PRN Reason: Pain, moderate (4-7) Morphine Sulfate (Morphine) 4 mg IVP Q6 PRN PRN Reason: Pain, severe (8-10) Ondansetron HCl (Zofran Inj) 4 mg IVP Q6 PRN PRN Reason: Nausea/Vomiting - Labs Labs: 03/15/19 05:10 03/15/19 05:10 PT 12.2 Seconds (9.8-13.1) 03/15/19 05:10 INR 1.1 03/15/19 05:10 APTT 33.4 Seconds (25.6-37.1) 03/15/19 05:10 - Head Exam Head Exam: NORMAL INSPECTION - Eye Exam Eye Exam: EOMI - ENT Exam ENT Exam: Mucous Membranes Moist - Neck Exam Neck Exam: Full ROM - Respiratory Exam Respiratory Exam: NORMAL BREATHING PATTERN - Cardiovascular Exam Cardiovascular Exam: REGULAR RHYTHM - GI/Abdominal Exam GI & Abdominal Exam: Soft, Tenderness - Extremities Exam Extremities Exam: Full ROM - Back Exam Back Exam: NORMAL INSPECTION - Neurological Exam Neurological Exam: Alert, Awake, Oriented x3 - Psychiatric Exam Psychiatric exam: Normal Affect - Skin Skin Exam: Normal Color, Warm Assessment and Plan - Assessment and Plan (Free Text) Assessment: 33 yo female with no pertinent medical history presented to ED because of low back pain and upper abdominal pain, admitted for Acute appendicitis. Plan: 1. Acute Appendicitis - Admit to Med/Surg - Hemodynamically stable, afebrile, no leukocytosis - Upreg negative - Surgery consult on board, planning appy today - CT scan: Acute appendicitis - Of note, patient had TVUS performed 10/2018 which found complex primarily solid mass on right adnexa- surgery made aware. - NPO - IVF @ maintenance - Zofran for nausea - Zosyn Q6H - Repeat Labs in the morning - Pain management- motrin and morphine - Tylenol for fevers 2. DVT prophylaxis - Early ambulation and SCD's 3. Full code
[2019-03-15] MEDS ORDERED: Oxycodone/Acetaminophen 5/325 mg Tab PO PRN ×2 (13:20)
--- NOTE | 2019-03-15 13:22 | PCM.SURG1 ---
Surgeon's Initial Post Op Note - Surgeon's Notes Surgeon: Dr. Zavaleta Tool Designer: Dr. Rogers Type of Anesthesia: General Endo Anesthesia Administered By: Dr. Villeda Pre-Operative Diagnosis: Appendicitis Operative Findings: see operative dictation Post-Operative Diagnosis: same Operation Performed: laparoscopic appendectomy Specimen/Specimens Removed: appendix Estimated Blood Loss: EBL {In ML}: 10 Blood Products Given: N/A Drains Used: No Drains Post-Op Condition: Good Date of Surgery/Procedure: 03/15/19 Time of Surgery/Procedure: 13:22
[2019-03-15] MEDS ORDERED: HYDROmorphone 0.5 mg/0.5 ml ISec IVP PRN (13:23)
[2019-03-15] MEDS ORDERED: Lactated Ringer's 1,000 ML IV SCH (13:30)
[2019-03-15 15:52] VITALS: TEMP 97.9
[2019-03-15 17:08] VITALS: O2SAT 96
--- NOTE | 2019-03-15 17:29 | CP.PCM.PCO ---
Assessment & Plan - Assessment and Plan (Free Text) Assessment: 33F s/p laparoscopic appendectomy Plan: Patient is tolerating diet Patient is ambulating Denies current nausea/vomiting Encourage IS use Encourage ambulation Patient to follow up with Dr. Zavaleta in 2 weeks Please call to make an appointment Patient cleared for discharge from a surgical standpoint D/w Dr. Waqar Rogers PGY1
--- NOTE | 2019-03-15 17:50 | CP.PCM.DIS ---
Provider - Provider Date of Admission: 03/14/19 22:12 Attending physician: hCung Shah MD Primary care physician: Dr. Guerin Consults: 03/14/19 22:28 Surgical [General Surgery Consult] Stat Comment: APPENDICITIS Consulting Provider: Michael Zavaleta Consulting Physician: Michael Zavaleta Reason for Consult: APPENDICITIS Time Spent in preparation of Discharge (in minutes): 20 Hospital Course - Lab Results Lab Results: Most Recent Lab Values WBC 7.5 K/uL (4.8-10.8) 03/15/19 05:10 RBC 4.14 Mil/uL (3.80-5.20) 03/15/19 05:10 Hgb 12.1 g/dL (12.0-16.0) 03/15/19 05:10 Hct 36.1 % (34.0-47.0) 03/15/19 05:10 MCV 87.4 fl (81.0-99.0) 03/15/19 05:10 MCH 29.2 pg (27.0-31.0) 03/15/19 05:10 MCHC 33.4 g/dL (33.0-37.0) 03/15/19 05:10 RDW 13.9 % (11.5-14.5) 03/15/19 05:10 Plt Count 303 K/uL (130-400) 03/15/19 05:10 MPV 6.8 fl (7.2-11.7) L 03/14/19 19:18 Neut % (Auto) 64.1 % (50.0-75.0) 03/14/19 19:18 Lymph % (Auto) 25.8 % (20.0-40.0) 03/14/19 19:18 [place] % (Auto) 8.1 % (0.0-10.0) 03/14/19 19:18 Eos % (Auto) 1.6 % (0.0-4.0) 03/14/19 19:18 Baso % (Auto) 0.4 % (0.0-2.0) 03/14/19 19:18 Neut # (Auto) 5.8 K/uL (1.8-7.0) 03/14/19 19:18 Lymph # (Auto) 2.3 K/uL (1.0-4.3) 03/14/19 19:18 [place] # (Auto) 0.7 K/uL (0.0-0.8) 03/14/19 19:18 Eos # (Auto) 0.1 K/uL (0.0-0.7) 03/14/19 19:18 Baso # (Auto) 0.0 K/uL (0.0-0.2) 03/14/19 19:18 PT 12.2 Seconds (9.8-13.1) 03/15/19 05:10 INR 1.1 03/15/19 05:10 APTT 33.4 Seconds (25.6-37.1) 03/15/19 05:10 Sodium 137 mmol/l (132-148) 03/15/19 05:10 Potassium 3.7 MMOL/L (3.6-5.0) 03/15/19 05:10 Chloride 103 mmol/L (98-107) 03/15/19 05:10 Carbon Dioxide 26 mmol/L (22-30) 03/15/19 05:10 Anion Gap 12 (10-20) 03/15/19 05:10 BUN 8 mg/dl (7-17) 03/15/19 05:10 Creatinine 0.6 mg/dl (0.7-1.2) L 03/15/19 05:10 Est GFR ( Amer) > 60 03/15/19 05:10 Est GFR (Non-Af Amer) > 60 03/15/19 05:10 Random Glucose 102 mg/dL (65-105) 03/15/19 05:10 Calcium 8.4 mg/dL (8.4-10.2) 03/15/19 05:10 Total Bilirubin 0.3 mg/dl (0.2-1.3) 03/14/19 19:18 AST 26 U/L (14-36) 03/14/19 19:18 ALT 27 U/L (9-52) 03/14/19 19:18 Alkaline Phosphatase 68 U/L (38-126) 03/14/19 19:18 Total Protein 7.5 G/DL (6.3-8.2) 03/14/19 19:18 Albumin 4.4 g/dL (3.5-5.0) 03/14/19 19:18 Globulin 3.2 gm/dL (2.2-3.9) 03/14/19 19:18 Albumin/Globulin Ratio 1.4 (1.0-2.1) 03/14/19 19:18 Lipase 48 U/L (23-300) 03/14/19 19:18 Urine Color Yellow (YELLOW) 03/14/19 18:48 Urine Clarity Slighty-cloudy (Clear) 03/14/19 18:48 Urine pH 5.0 (5.0-8.0) 03/14/19 18:48 Ur Specific [place] 1.025 (1.003-1.030) 03/14/19 18:48 Urine Protein Negative mg/dL (NEGATIVE) 03/14/19 18:48 Urine Glucose (UA) Neg mg/dL (NEGATIVE) 03/14/19 18:48 Urine Ketones Negative mg/dL (NEGATIVE) 03/14/19 18:48 Urine Blood Small (NEGATIVE) 03/14/19 18:48 Urine Nitrate Negative (NEGATIVE) 03/14/19 18:48 Urine Bilirubin Negative (NEGATIVE) 03/14/19 18:48 Urine Urobilinogen 0.2-1.0 mg/dL (0.2-1.0) 03/14/19 18:48 Ur Leukocyte Esterase Neg Jeb/uL (Negative) 03/14/19 18:48 Urine RBC (Auto) 3 /hpf (0-3) 03/14/19 18:48 Ur Squamous Epith Cells 1 /hpf (0-5) 03/14/19 18:48 - Hospital Course Hospital Course: 33 y/o F with no PMH presented with abdominal pain , afebrile with normal WBC count CT abdomen showed un ruptured acute appendicitis Surgery consulted and patient taken to OR today for lap appendectomy that showed inflamed appendix Post op patient doing well, tolerating diet, ambulating , voiding Cleared by surgery for discharge home Follow up with surgery in 2 weeks afte discharge Discharge Exam - Head Exam Head Exam: NORMAL INSPECTION - Eye Exam Eye Exam: EOMI, PERRL Pupil Exam: NORMAL ACCOMODATION - ENT Exam ENT Exam: Mucous Membranes Moist, Normal Exam - Neck Exam Neck exam: Full Rom, Normal Inspection - Respiratory Exam Respiratory Exam: Clear to PA & Lateral, NORMAL BREATHING PATTERN. absent: Rales, Rhonchi, Wheezes - Cardiovascular Exam Cardiovascular Exam: REGULAR RHYTHM, RRR, +S1, +S2. absent: JVD - GI/Abdominal Exam GI & Abdominal Exam: Normal Bowel Sounds, Soft. absent: Distended, Guarding, Rebound - Rectal Exam Rectal Exam: Deferred - Extremities Exam Extremities exam: normal capillary refill, normal inspection, pedal pulses present - Back Exam Back exam: NORMAL INSPECTION - Neurological Exam Neurological exam: Alert, CN II-XII Intact, Oriented x3, Reflexes Normal - Psychiatric Exam Psychiatric exam: Normal Affect, Normal Mood - Skin Skin Exam: Dry, Intact, Normal Color, Warm Discharge Plan - Follow Up Plan Condition: GOOD Disposition: HOME/ ROUTINE Patient education suggested?: Yes Instructions: Appendicitis, Adult (DC) Additional Instructions: Follow up with pmd in 1 week. Follow up with Dr. Zavaleta within 1 week of discharge. Resume regular diet. Resume any and all home medications. Ok to shower. Avoid baths or pools for 2 weeks. Activity as tolerated. No heavy lifting for 4 weeks. For pain, Tylenol or ibuprofen every 4-6 hours as needed. If symptoms worsen, promptly return to nearest ED. Referrals: Titi Guerin MD [Staff Provider] - Michael Zavaleta MD [Staff Provider] -
--- NOTE | 2019-03-15 17:50 | PCM.OP ---
Operative Report - Operative Report Date of Surgery/Procedure: 03/15/19 Time of Surgery/Procedure: 11:00 Surgeon: Dr. Michael Zavaleta Delivery Driver: Dr. Rogers, PGY1 Anesthesia/Sedation: General Pre-Operative Diagnosis: Acute Appendicitis Post-Operative Diagnosis: Acute Appendicitis Indication for Surgery: This is a 33 year old female who presented with right lower quadrant pain of 2 days duration. Appropriate work up including CT scan, labs, and physical exam were consistent with acute appendicitis. Appendectomy indicated and recommended at this time with patient medically optimized. test was negative. The risks, benefits, and surgery rationale were explained. Informed consent was obtained with nurse at bedside as witness. Operative Findings: Right pericolic gutter serous fluid, acutely inflamed and enlarged appendix Procedure/Operation Description: Patient was taken to the operating room and placed on the table in supine position with left arm tucked in. Time-outs were performed to verify correct patient, procedure, site, and additional critical information prior to beginning the procedure. Preoperatively, patient received 1 dose of Zosyn. General anesthesia was initiated and patient intubated. Patient was then prepped and draped in sterile fashion. A periumbilical incision was made, the fascia was elevated, and the Veress needle inserted. Proper position was confirmed with aspiration and saline meniscus test. A 12mm trocar was then inserted at the umbilicus using the visiport technique. The abdomen was insufflated with CO2 to a pressure of 15mmHg to achieve pneumoperitoneum. Patient tolerated insufflation well.The laparoscope was inserted and the abdomen inspected to ensure no injuries occurred with initial port placement. Of note, adhesions from previous caesarian section were identified. Additional ports placed as follows: a 5mm port above the pubic symphisis and a 5mm port along the left lower quadrant, lateral to the rectus muscle. The table was placed in reverse trendelenburg with right side up. Upon inspection, serous fluid was noted around the right paracolic gutter. The cecum was gently grasped to expose the appendix. An atraumatic grasper was then passed through the suprapubic port and omentum was dissected away until the a ppendix was fully visualized. The appendix was then grasped and elevated. It was noted to be enlarged and acutely inflamed. A window was developed in the mesoappendix to the base of appendix. The mesoappendix was taken using the harmonic. The presumed appendiceal artery was identified and also taken with the harmonic. An endoscopic linear cutting stapler was passed through the umbilical port to divide and staple the base of the appendix. The appendix was placed in an endoscopic retrieval bag and removed. The appendiceal stump was then inspected, no bleeding was noted; hemostasis assured. Fluid was suctioned. No other pathology was identified. The laparoscope was withdrawn. The ports were removed. The abdomen was deflated. 0-Vicryl on UR-6 needle was used for fascial closure of umbilical port site. The skin of all incisions re-approximated with subcuticular 4-0 monocryl and dermabond. Operative field was cleaned and dried. Steri-strips and bandages were applied. No intraoperative complications encountered. All instrument and sponge counts were correct. The patient was extubated in the OR and transferred to PACU in stable condition. Estimated Blood Loss: 10 mL Blood Replaced: N/A Sponge/Instrument Count: Correct Drains: None Complications: None Specimen: Appendix Discharge & Condition: Patient in good condition. Cleared for discharge from a surgical standpoint.
[2019-03-15 17:54] VITALS: BP 108/70; PULSE 84; RESP 20
== END 2019-03-15 21:00 | disposition home or self-care (01) | DRG 883 ==
LOC: H.ER 18:15 → H.ERHOLD 22:12 → H.MEDSURG1 03-15 00:08
PROVIDERS: ADMIT Internal Medicine; ATTEND Internal Medicine
PROC: 0DTJ4ZZ Resection of Appendix, Percutaneous Endoscopic Approach (ICD-10-PCS; principal; 2019-03-15 10:15)
DX: K35.80 Unspecified acute appendicitis (principal)